=== PATIENT | female | born 1945 | race Caucasian/White ===

== ENCOUNTER 2018-04-27 16:00 | Emergency (ER) | payer OTHER ==
[2018-04-27 17:25] LABS: Absolute Lymphocytes (CBC) 0.9 K/uL (0.7-4.9); Absolute Monocytes 0.4 K/uL (0.1-1.3); Absolute Neutrophil 2.4 K/uL (1.8-8.0); Basophils % 0.4 % (0-1.3); Hematocrit 41.8 % (36.0-45.0); Lymphocytes % 23.3 % (15.3-44.8); MPV 8.6 fL (7.6-11.3); Monocytes % 11.6 % (3.3-12.3); RBC Red Blood Cell Count 4.57 M/uL (3.86-4.86)
[2018-04-27 17:40] LABS: Potassium 3.9 mmol/L (3.5-5.1)
--- NOTE | 2018-04-27 17:40 | RAD REPORT ---
EXAM DESCRIPTION: CT - [id number] - 04/27/2018 5:22 pm CLINICAL HISTORY: Fall, head and neck injury COMPARISON: CT head December 2016 TECHNIQUE: Axial 5 mm thick images of the head were obtained. Axial 2 mm thick images of the cervic al spine were obtained with sagittal and coronal reconstruction images generated and reviewed. All CT scans are performed using dose optimization technique as appropriate and may include automated exposure control or mA/KV adjustment according to patient size. FINDINGS: No intracranial hemorrhage, mass, edema or acute intracranial finding. No suspicion for acute infarct ion. No cortical edema or sulcal effacement. There is a small to moderate left lateral scalp hematoma . Patient has underlying prominent atrophy and moderate chronic ischemic change. Ventricles are in pr oportion to volume loss. There is enlargement of the occipital horns of the lateral ventricle along w ith encephalomalacia in the medial aspect of each occipital lobe. This is a stable pattern. Mastoid a ir cells and paranasal sinuses are clear. No globe or orbit abnormality seen. No skull fracture. Cervical bodies are normal in height. There is mineralization across the C2-3 disc space. Anterior bishop bluxation of C3 on C4 measuring 5 mm noted. Patient has severe facet degenerative change at this leve l which would explain the subluxation. Minimal retrolisthesis of C5 relative to C6. Slight anterior s ubluxation of C6 relative to C7. Advanced C5-6 and C6-7 disc space narrowing seen. Posterior endplate spurring changes are present. Patient has significant bilateral foraminal stenosis at C3-4 moderate at C4-5, severe at C5-6 and moderate at C6-7. No fracture or acute bony abnormality. Central canal de tail is inherently limited. No paraspinal mass or hematoma. IMPRESSION: No hemorrhage, edema or acute intracranial finding. Patient has prominent atrophy and ch ronic ischemic changes matching 2017. Advanced cervical spine degenerative changes are present as detailed. Fracture or other acute compone nt is not identifiable. Negative CT cervical spine examination for acute or significant finding.
--- NOTE | 2018-04-27 17:51 | ER ---
Nurse's Notes [facility] Name: Mia Hazel Age: 72 yrs Sex: Female : 1945 Arrival Date: 04/27/2018 Time: 16:04 Bed 18 Private MD: Diagnosis: Contusion of scalp Presentation: 04/27 16:04 Presenting complaint: EMS states: FALL FROM WHEELCHAIR AT [facility]. Care prior to bp arrival: None. Mechanism of Injury: Fall out of chair. Trauma event details: Injury occurred in the [facility], Injury occurred: at home. Injury occurred: April 27, 2018 Injury occurred at: 15:00. 16:04 Acuity: PAM 3 bp 16:04 Method Of Arrival: EMS: [facility] bp 16:05 Transition of care: patient was received from another setting of care (long-term care bp facility), [facility]. Onset of symptoms was April 27, 2018 at 15:30. 16:05 Risk Assessment: Do you want to hurt yourself or someone else? Patient reports no bp desire to harm self or others. Initial Sepsis Screen: Does the patient meet any 2 criteria? No. Patient's initial sepsis screen is negative. Does the patient have a suspected source of infection? No. Patient's initial sepsis screen is negative. Trauma Activation: Not Applicable Physician: ED Physician; Name: ; Notified At: ; Arrived At: Physician: General Surgeon; Name: ; Notified At: ; Arrived At: Physician: Radiology; Name: ; Notified At: ; Arrived At: Physician: Respiratory; Name: ; Notified At: ; Arrived At: Physician: Lab; Name: ; Notified At: ; Arrived At: Historical: - Allergies: 17:07 No Known Allergies; bp - Home Meds: 17:07 lorazepam 1 mg Oral tab 1 tab 3 times per day [Active]; meloxicam 15 mg Oral tab 1 tab bp once daily [Active]; ICaps AREDS 7,160-113-100 [id number] oral TbEC [Active]; thiamine HCl (vitamin B1) 100 mg Oral tab 100 mg daily [Active]; folic acid 1 mg Oral tab 1 tab once daily [Active]; lisinopril 20 mg Oral tab 1 tab once daily [Active]; atorvastatin 10 mg Oral tab 1 tab once daily [Active]; quetiapine 50 mg oral tab 1 tab nightly [Active]; Depakote ER 500 mg oral Tb24 1 tab once daily [Active]; Namenda 10 mg oral tab 1 tab 2 times per day [Active]; Klor-Con 10 10 mEq Oral TbER 1 tab 2 times per day [Active]; - PMHx: 17:07 Alzheimers; Dementia; LEFT SIDED HEMIPLEGIA; Anxiety; Hypertension; Hyperlipidemia; bp stroke; in the 1970; - Immunization history: Last tetanus immunization: - up to date. - Social history:: Smoking status: Patient/guardian denies using tobacco. - Ebola Screening: : Patient denies travel to an Ebola-affected area in the 21 days before illness onset Patient negative for fever greater than or equal to 101.5 degrees Fahrenheit, and additional compatible Ebola Virus Disease symptoms Patient denies exposure to infectious person Patient denies travel to an Ebola-affected area in the 21 days before illness onset No symptoms or risks identified at this time. Screenin:21 Abuse screen: Denies threats or abuse. Denies injuries from another. Tuberculosis bp screening: No symptoms or risk factors identified. 16:30 Nutritional screening: No deficits noted. Fall Risk Fall in past 12 months (25 points). bp Secondary diagnosis (15 points) Alzheimer's, impaired mobility, No IV (0 pts). Ambulatory Aid- None/Bed Rest/Nurse Assist (0 pts). Gait- Normal/Bed Rest/Wheelchair (0 pts) Mental Status- Overestimates/Forgets Limitations (15 pts.). Total Macdonald Fall Scale indicates High Risk Score (45 or more points). Fall prevention measures have been instituted. Side Rails Up X 2 Placed Close to Nursing Station Frequent Obs/Assessments Occuring Family Present and informed to notify staff if the need to leave the bedside As available patient and family educated on Fall Prevention Program and Strategies. Primary Survey: 16:21 NO uncontrolled hemorrhage observed. A: The patient needs verbal stimulation to bp respond. Airway: patent, No supplemental oxygen in use on arrival. Breathing/Chest: Respiratory pattern: regular, Respiratory effort: spontaneous, unlabored. Circulation: Skin color: pink, Skin temperature: warm, dry. Disability Alert. Exposure/Environment: There is no evidence of uncontrolled external bleeding. Obvious injury(ies) are noted at this time: LEFT PARIETAL HEMATOMA. 18:10 Reassessment Breathing/Chest Respiratory pattern Regular Respiratory effort Spontaneous bp Unlabored. Secondary Survey: 16:21 HEENT: Head Other LEFT PARIETAL HEMATOMA. Gastrointestinal: No deficits noted. : No bp signs and/or symptoms were reported regarding the genitourinary system. Assessment: 16:04 General: Appears in no apparent distress. comfortable, slender, Behavior is calm, bp cooperative. Pain: Denies pain. Neuro: Level of Consciousness is awake, obeys commands, confused, Oriented to person, AT PREVIOUS BASELINE. Neuro: H/O LEFT SIDED DEFICITS. EENT: No deficits noted. Cardiovascular: No deficits noted. Respiratory: Airway is patent Respiratory effort is even, unlabored, Respiratory pattern is regular, symmetrical. GI: No signs and/or symptoms were reported involving the gastrointestinal system. : No signs and/or symptoms were reported regarding the genitourinary system. Derm: No deficits noted. Musculoskeletal: Circulation, motion, and sensation intact. Range of motion: limited in left shoulder, left hip, left knee and left ankle. Injury Description: Bruise sustained to left side of the back of head. 16:58 Reassessment: PT TO CT WITH [employer], ALL OTHER ORDERS COMPLETED. bp 17:59 Reassessment: D/C ON HOLD, FAMILY DECIDING WHETHER TO TAKE PT HOME OR RETURN HER TO [facility]. 18:08 Reassessment: REPORT CALLED TO [facility]. [facility] TRAN[facility] EN ROUTE. bp 19:05 Reassessment: Patient appears in no apparent distress at this time. Patient is alert, rr5 oriented x 3, equal unlabored respirations, skin warm/dry/pink. awaiting for [facility] transportation staff to come. no complaints made. snacks given with good appetite. 19:15 General: Appears in no apparent distress. comfortable, Behavior is calm, cooperative, rr5 episodes of disorientation. 19:15 Pain: Denies pain. Neuro: Level of Consciousness is awake, obeys commands, confused, rr5 Oriented to person. Cardiovascular: Capillary refill < 3 seconds Patient's skin is warm and dry. Respiratory: Airway is patent Respiratory effort is even, unlabored, Respiratory pattern is regular, symmetrical. GI: No signs and/or symptoms were reported involving the gastrointestinal system. : No signs and/or symptoms were reported regarding the genitourinary system. EENT: No signs and/or symptoms were reported regarding the EENT system. Derm: Skin is intact, Skin temperature is warm. Musculoskeletal: Circulation, motion, and sensation intact. Capillary refill < 3 seconds, Range of motion: limited in left side of the body. 19:46 Reassessment: Patient appears in no apparent distress at this time. [facility] rr5 arrived. vitally stable. Vital Signs: 16:21 BP 120 / 99; Pulse 93; Resp 16; Temp 98; Pulse Ox 96% ; Weight 40.82 kg; bp 16:58 BP 90 / 67; Pulse 67; Resp 14; Pulse Ox 96% ; bp 19:05 BP 120 / 76; Pulse 91; Resp 16; Temp 98.1; Pulse Ox 98% ; rr5 Everett Coma Score: 16:21 Eye Response: spontaneous(4). Verbal Response: confused(4). Motor Response: obeys bp commands(6). Total: 14. Trauma Score (Adult): 16:21 Eye Response: spontaneous(1); Verbal Response: confused(1); Motor Response: obeys bp commands(2); Systolic BP: > 89 mm Hg(4); Respiratory Rate: 10 to 29 per min(4); [place] Score: 14; Trauma Score: 12 ED Course: 16:04 Patient arrived in ED. bp 16:06 Triage completed. bp 16:13 Vicotr Manuel Mcintosh MD is Attending Physician. ps1 16:21 Be Le, RN is Primary Nurse. bp 16:21 Patient has correct armband on for positive identification. Bed in low position. Call bp light in reach. Side rails up X2. Adult w/ patient. 16:21 Patient maintains SpO2 saturation greater than 95% on room air. Thermoregulation: warm bp blanket given to patient. 16:55 No provider procedures requiring assistance completed. Inserted saline lock: 22 gauge bp in right forearm, using aseptic technique. Blood collected. 17:08 Arm band placed on. bp 17:24 CT Head C Spine In Process Unspecified. EDMS 18:09 IV discontinued, intact, bleeding controlled, No redness/swelling at site. Pressure bp dressing applied. Administered Medications: No medications were administered Intake: 16:21 PO: 0ml; Total: 0ml. bp Output: 16:21 Urine: 0ml; Total: 0ml. bp Outcome: 17:50 Discharge ordered by . ps1 18:09 Discharged to custodial. Report called to [facility] 18:09 Condition: stable 18:09 Discharge instructions given to family, custodial, Instructed on discharge instructions, follow up and referral plans. Demonstrated understanding of instructions, follow-up care. 18:11 Patient's length of stay in the Emergency Department was greater than 2 hours. NURSING bp HOME TRANSPORT WAIT TIMEPatient's length of stay extended due to 19:49 Patient left the ED. rr5 Signatures: Dispatcher [employer] EDBe Lynne, RN RN bp Victor Manuel Mcintosh MD MD ps1 Elias Lange, MERARY RN rr5
--- NOTE | 2018-04-27 17:52 | EDPHYS ---
Physician Documentation [facility] Name: Mia Hazel Age: 72 yrs Sex: Female : 1945 Arrival Date: 04/27/2018 Time: 16:04 Bed 18 Private MD: ED Physician Victor Manuel Mcintosh HPI: 04/27 16:17 This 72 yrs old Female presents to ER via EMS with complaints of Fall Injury. ps1 16:17 patient from [place]. Has left sided deficits from previous stroke. Fell out of a chair and ps1 has a contusion to left side of head. Unk LOC. Not on blood thinners. Severe dementia. Not in pain. . Historical: - Allergies: 17:07 No Known Allergies; bp - Home Meds: 17:07 lorazepam 1 mg Oral tab 1 tab 3 times per day [Active]; meloxicam 15 mg Oral tab 1 tab bp once daily [Active]; ICaps AREDS 7,160-113-100 [id number] oral TbEC [Active]; thiamine HCl (vitamin B1) 100 mg Oral tab 100 mg daily [Active]; folic acid 1 mg Oral tab 1 tab once daily [Active]; lisinopril 20 mg Oral tab 1 tab once daily [Active]; atorvastatin 10 mg Oral tab 1 tab once daily [Active]; quetiapine 50 mg oral tab 1 tab nightly [Active]; Depakote ER 500 mg oral Tb24 1 tab once daily [Active]; Namenda 10 mg oral tab 1 tab 2 times per day [Active]; Klor-Con 10 10 mEq Oral TbER 1 tab 2 times per day [Active]; - PMHx: 17:07 Alzheimers; Dementia; LEFT SIDED HEMIPLEGIA; Anxiety; Hypertension; Hyperlipidemia; bp stroke; in the 1970; - Immunization history: Last tetanus immunization: - up to date. - Social history:: Smoking status: Patient/guardian denies using tobacco. - Ebola Screening: : Patient denies travel to an Ebola-affected area in the 21 days before illness onset Patient negative for fever greater than or equal to 101.5 degrees Fahrenheit, and additional compatible Ebola Virus Disease symptoms Patient denies exposure to infectious person Patient denies travel to an Ebola-affected area in the 21 days before illness onset No symptoms or risks identified at this time. ROS: 16:17 Unable to obtain ROS due to baseline dementia. ps1 Exam: 16:17 Eyes: Pupils equal round and reactive to light, extra-ocular motions intact. Lids and ps1 lashes normal. Conjunctiva and sclera are non-icteric and not injected. Chest/axilla: Normal chest wall appearance and motion. Nontender with no deformity. No lesions are appreciated. Cardiovascular: Regular rate and rhythm. No gallops, murmurs, or rubs. Normal PMI, no JVD. No pulse deficits. Respiratory: Lungs have equal breath sounds bilaterally, clear to auscultation and percussion. No rales, rhonchi or wheezes noted. No increased work of breathing, no retractions or nasal flaring. MS/ Extremity: Pulses equal, no cyanosis. Neurovascular intact. Full, normal range of motion. 16:17 Constitutional: The patient appears in no acute distress. 16:17 Head/face: Noted is hematoma, that is moderate, of the left side of the back of head. 16:17 Neuro: Orientation: to person, place, situation, Mentation: is normal, Cranial nerves: grossly normal, Motor: weakness on LUE and LLE. . Vital Signs: 16:21 BP 120 / 99; Pulse 93; Resp 16; Temp 98; Pulse Ox 96% ; Weight 40.82 kg; bp 16:58 BP 90 / 67; Pulse 67; Resp 14; Pulse Ox 96% ; bp 19:05 BP 120 / 76; Pulse 91; Resp 16; Temp 98.1; Pulse Ox 98% ; rr5 Everett Coma Score: 16:21 Eye Response: spontaneous(4). Verbal Response: confused(4). Motor Response: obeys bp commands(6). Total: 14. Trauma Score (Adult): 16:21 Eye Response: spontaneous(1); Verbal Response: confused(1); Motor Response: obeys bp commands(2); Systolic BP: > 89 mm Hg(4); Respiratory Rate: 10 to 29 per min(4); Everett Score: 14; Trauma Score: 12 MDM: 16:21 Patient medically screened. ps1 17:51 Data reviewed: vital signs, nurses notes, lab test result(s), radiologic studies. ps1 04/27 16:17 Order name: Basic Metabolic Panel; Complete Time: 17:48 ps1 04/27 16:17 Order name: CBC with Diff; Complete Time: 17:39 ps1 04/27 16:17 Order name: CT Head C Spine; Complete Time: 17:48 ps1 04/27 16:17 Order name: Creatinine for Radiology; Complete Time: 17:48 ps1 04/27 16:17 Order name: Type And Screen; Complete Time: 18:29 ps1 04/27 18:40 Order name: Diet Regular; Complete Time: 18:42 04/27 16:17 Order name: Labs collected and sent; Complete Time: 16:55 ps1 Administered Medications: No medications were administered Disposition: 17:51 Chart complete. ps1 Disposition: 04/27/18 17:50 Discharged to Home. Impression: Contusion of scalp. - Condition is Stable. - SBAR form, Medication Reconciliation Form, Thank You Letter, Antibiotic Education, Prescription Opioid Use form. - Follow up: Private Physician; When: As needed; Reason: Recheck today's complaints, Continuance of care, Re-evaluation by your physician. Follow up: Emergency Department; When: As needed; Reason: Worsening of condition. - Problem is new. - Symptoms have improved. Signatures: Dispatcher [employer] EDBe Lynne RN RN bp Victor Manuel Mcintosh MD MD ps1 Elias Lange RN RN rr5 Corrections: (The following items were deleted from the chart) 19:49 17:50 04/27/2018 17:50 Discharged to Home. Impression: Contusion of scalp. Condition is rr5 Stable. Forms are Medication Reconciliation Form, Thank You Letter, Antibiotic Education, Prescription Opioid Use. Follow up: Private Physician; When: As needed; Reason: Recheck today's complaints, Continuance of care, Re-evaluation by your physician. Follow up: Emergency Department; When: As needed; Reason: Worsening of condition. Problem is new. Symptoms have improved. ps1
== END 2018-04-27 19:49 | disposition home or self-care (01) ==
LOC: ER 16:00
DX: S00.03XA Contusion of scalp, initial encounter (principal); W07.XXXA Fall from chair, initial encounter; Y92.129 Unspecified place in nursing home as the place of occurrence of the external cause; G30.9 Alzheimer's disease, unspecified; F02.80 Dementia in other diseases classified elsewhere, unspecified severity, without behavioral disturbance, psychotic disturbance, mood disturbance, and anxiety; I69.354 Hemiplegia and hemiparesis following cerebral infarction affecting left non-dominant side; I10 Essential (primary) hypertension; E78.5 Hyperlipidemia, unspecified; F41.9 Anxiety disorder, unspecified; Z79.1 Long term (current) use of non-steroidal anti-inflammatories (NSAID); Z79.899 Other long term (current) drug therapy
CPT/HCPCS: 36415; 70450; 72125; 80048; 85025; 86850; 86900; 86901; 99284